=== PATIENT | male | born 1985 | race Caucasian/White ===

== ENCOUNTER 2022-12-20 21:14 | Emergency (ER) | payer SELFPAY ==
[2022-12-20 21:18] VITALS: BP 131/86; PULSE 76; RESP 18; TEMP 36.8; O2SAT 96; BMI 32.1
== END 2022-12-20 22:08 | disposition left against medical advice (07) ==
PROVIDERS: Emergency Provider Emergency Medicine
DX: Z53.21 Procedure and treatment not carried out due to patient leaving prior to being seen by health care provider (principal)
CPT/HCPCS: 99281